=== PATIENT | male | born 1975 | race Caucasian/White ===

== ENCOUNTER 2017-01-22 14:53 | Emergency (ER) | payer SELFPAY | END 2017-01-22 18:30 | disposition home or self-care (01) | LOC: FER 14:53 | DX: R51 Headache (principal); R53.1 Weakness; R42 Dizziness and giddiness; G40.909 Epilepsy, unspecified, not intractable, without status epilepticus; F17.200 Nicotine dependence, unspecified, uncomplicated; Z79.899 Other long term (current) drug therapy ==